=== PATIENT | female | born 2000 | race Caucasian/White ===

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

== ENCOUNTER 2022-08-08 23:00 | Emergency (ER) | payer BC ==
[2022-08-09] MEDS ORDERED: Ketorolac 30 MG/ML SDV IM STA (00:09)
[2022-08-09 00:53] LABS: CORONAVIRUS COVID-19 NAA NEGATIVE (NEGATIVE); INFLUENZA A NAA POSITIVE (NEGATIVE); INFLUENZA B NAA NEGATIVE (NEGATIVE); RESPIRATORY SYNCYTIAL VIR NAA NEGATIVE (NEGATIVE)
[2022-08-09 01:25] VITALS: BP 115/70; PULSE 79
== END 2022-08-09 01:24 | disposition home or self-care (01) ==
LOC: MW.ED 23:00
DX: J10.1 Influenza due to other identified influenza virus with other respiratory manifestations (principal); Z20.822 Contact with and (suspected) exposure to COVID-19
CPT/HCPCS: 0241U; 96372; 99283; J1885

== ENCOUNTER 2024-06-25 22:22 | Inpatient (IN) | payer OTHER ==
[2024-06-25] MEDS ORDERED: Sodium Chloride 0.9% 10 ML Syringe FLUSH PRN (23:14)
[2024-06-25] MEDS ORDERED: Carboprost Tromethamine 250 MCG/1 mL Vial IM PRN (23:14)
[2024-06-25] MEDS ORDERED: Lidocaine 1% 50 ML MDV INJECT PRN (23:14)
[2024-06-25] MEDS ORDERED: Sodium Chloride 0.9% 20 ML SDV IV PRN (23:14)
[2024-06-25] MEDS ORDERED: Sodium Chloride 0.9% 2.5 ML Syringe FLUSH PRN (23:14)
[2024-06-25] MEDS ORDERED: Water For Irrigation,Sterile 1,000 ML Container IRR PRN (23:14)
[2024-06-25] MEDS ORDERED: Methylergonovine 0.2 MG/1 ML Amp IM PRN (23:14)
[2024-06-25] MEDS ORDERED: Terbutaline 1 MG/ML SDV SUBCUT PRN (23:14)
[2024-06-25] MEDS ORDERED: Misoprostol 200 MCG Tab PO PRN (23:14)
[2024-06-25 23:59] LABS: HEMATOCRIT 33.4 % (37.0-47.0); HEMOGLOBIN 11.2 g/dL (12.0-16.0); MEAN CORPUSCULAR HGB CONC 33.5 g/dL (32.0-36.0); MEAN CORPUSCULAR VOLUME 86.5 fL (83.0-99.0); MEAN PLATELET VOLUME 9.8 fL (9.4-12.3); PLATELET COUNT,PLT 266 K/uL (150-400); RED BLOOD CELL COUNT 3.86 M/uL (4.10-5.30)
[2024-06-26] MEDS ORDERED: hydrOXYzine HCl 25 MG Tab PO PRN (00:23)
[2024-06-26] MEDS ORDERED: Morphine 10 MG/ML SDV IM PRN (00:26)
[2024-06-26] MEDS ORDERED: diphenhydrAMINE 50 MG Cap PO PRN (00:27)
[2024-06-26] MEDS: Oxytocin/0.9 % Sodium Chloride 30 UNIT/500 ML BAG IV SCH ×2 (05:30→16:45)
[2024-06-26] MEDS: Lactated Ringers 1,000 ML IV SCH (05:33)
[2024-06-26] MEDS: Butorphanol 2 MG/ML SDV IVPUSH PRN (08:00)
[2024-06-26] MEDS ORDERED: Ropivacaine HCl/PF 200 ML ONE (09:36)
[2024-06-26] MEDS ORDERED: Bupivacaine 0.5% 10 ML SDV ONE (09:36)
[2024-06-26] MEDS ORDERED: Phenylephrine HCl In 0.9% NaCl 1 MG/10 ML Syringe ONE (09:36)
[2024-06-26] MEDS ORDERED: Phenylephrine HCl In 0.9% NaCl 1 MG/10 ML Syringe IVPUSH PRN (10:01)
[2024-06-26] MEDS ORDERED: ePHEDrine 50 MG/ML SDV IVPUSH PRN (10:01)
[2024-06-26] MEDS ORDERED: dexmedeTOMIDine HCl 200 MCG/2 ML SDV EPIDUR SCH (10:15)
[2024-06-26] MEDS: Ropivacaine HCl/PF 400 MG in Premix Bag 1 BAG EPIDUR SCH (10:35)
[2024-06-26] MEDS: Ondansetron 4 MG/2 ML SDV IVPUSH PRN (10:51)
[2024-06-26] MEDS ORDERED: oxyCODONE 5 MG Tab PO PRN (17:03)
[2024-06-26 17:22] LABS: PH,UMBILICAL ARTERIAL 7.253 (7.18-7.38); PH,UMBILICAL VENOUS 7.325 (7.25-7.45)
[2024-06-26] MEDS: Witch Hazel Medicated Pads 40/Jar TOP PRN (20:27)
[2024-06-26] MEDS: Benzocaine/Menthol 20%-0.5% Spray 78 GM Cannister TOP PRN (20:27)
[2024-06-26] MEDS: Lanolin 100% Cream 7 GM Tube TOP PRN (20:27)
[2024-06-26] MEDS: Ibuprofen 800 MG Tab PO PRN (20:31)
[2024-06-26] MEDS: Acetaminophen 500 MG Tab PO PRN (20:32)
[2024-06-26] MEDS: Docusate Sodium 100 MG Cap PO PRN (20:32)
[2024-06-27 06:01] LABS: HEMATOCRIT 31.1 % (37.0-47.0); HEMOGLOBIN 10.4 g/dL (12.0-16.0)
[2024-06-27 06:33] LABS: CALCIUM 8.7 mg/dL (8.5-10.1); CARBON DIOXIDE,CO2 24.5 mmol/L (21.0-32.0); CREATININE 0.8 mg/dL (0.6-1.0); EST CRCL DRUG DOSING (CG) 87.24 mL/min; POTASSIUM,K 4.1 mmol/L (3.5-5.1)
[2024-06-27 18:01] VITALS: BP 122/73; PULSE 78
== END 2024-06-27 19:05 | disposition home or self-care (01) | DRG 807 ==
LOC: MW.OBCHECK 22:22 → MW.OB 22:24 → MW.OBCHECK 06-26 00:20 → MW.OB 06-26 00:20 → OBSVTOIN 06-26 16:41 → MW.OB 06-26 22:24
PROVIDERS: ADMIT Obstetrics & Gynecology; ATTEND Obstetrics & Gynecology
PROC: 10E0XZZ Delivery of Products of Conception, External Approach (ICD-10-PCS; principal; 2024-06-26)
PROC: 0HQ9XZZ Repair Perineum Skin, External Approach (ICD-10-PCS; 2024-06-26)
DX: O24.420 Gestational diabetes mellitus in childbirth, diet controlled (principal); Z37.0 Single live birth; Z3A.38 38 weeks gestation of pregnancy; O70.0 First degree perineal laceration during delivery
CPT/HCPCS: 01967; 36415; 51702; 59025; 80048; 82803; 82947; 84112; 85014; 85018; 85027; 86592; 86850; 86900; 86901; A9270-GY; J0595; J0665; J2371; J2405; J2590; J2795; J7120